=== PATIENT | male | born 2000 | race Native Hawaiian/Other Pacific Islander ===

== ENCOUNTER 2019-05-13 09:43 | Emergency (ER) | payer BC ==
[~2019-05-13] VITALS: Ht 167.6 cm; Wt 63.5 kg
[2019-05-13 09:55] VITALS: BP 158/97; TEMP 98.6
== END 2019-05-13 11:18 | disposition home or self-care (01) ==
LOC: ED 09:43
PROC: 2W3MX1Z Immobilization of Left Lower Extremity using Splint (ICD-10-PCS; principal; 2019-05-13)
DX: S83.92XA Sprain of unspecified site of left knee, initial encounter (principal); W19.XXXA Unspecified fall, initial encounter; Y93.64 Activity, baseball
CPT/HCPCS: 96372; 99283; J1885

== ENCOUNTER 2020-12-25 09:51 | Outpatient (CLI) | payer BC | END 2020-12-25 19:30 | disposition home or self-care (01) | LOC: RAD 09:51 | PROVIDERS: ATTEND Nurse Practitioner Family | DX: R94.31 Abnormal electrocardiogram [ECG] [EKG] (principal) ==

== ENCOUNTER 2021-01-02 10:56 | Outpatient (CLI) | payer BC | END 2021-01-02 19:56 | disposition home or self-care (01) | LOC: RESP 10:56 | PROVIDERS: ATTEND Nurse Practitioner Family | DX: R94.31 Abnormal electrocardiogram [ECG] [EKG] (principal) | CPT/HCPCS: 93225 ==

== ENCOUNTER 2021-07-19 21:20 | Observation (INO) | payer BC ==
[~2021-07-19] VITALS: Ht 182.9 cm; Wt 76.5 kg
[2021-07-19 21:25] VITALS: BP 160/97; TEMP 97.7
[2021-07-19 22:09] LABS: PLATELET COUNT 220 K/uL (142-355)
[2021-07-19 22:17] LABS: POTASSIUM 3.7 mmol/L (3.6-5.2); SODIUM 136 mmol/L (136-145)
[2021-07-19 22:30] VITALS: BP 143/90
[2021-07-19 22:32] LABS: PARTIAL THROMBOPLASTIN TIME 22.3 SECONDS (24.5-33.6)
[2021-07-19 23:00] VITALS: BP 136/91
[2021-07-19 23:30] VITALS: BP 139/94
[2021-07-20] VITALS: BP 141/94
[2021-07-20 01:03] VITALS: BP 155/97; TEMP 97.7; Ht 182.9 cm; Wt 76.5 kg
[2021-07-20 04:00] VITALS: BP 119/75; TEMP 97.7
[2021-07-20 08:00] VITALS: BP 134/74; TEMP 97.6
[2021-07-20 12:00] VITALS: BP 133/94; TEMP 98.1
== END 2021-07-20 15:40 | disposition home or self-care (01) ==
LOC: ED 21:20 → MED/SURG 23:00
PROVIDERS: ADMIT Hospitalist; ATTEND Internal Medicine
DX: R55 Syncope and collapse (principal); R07.89 Other chest pain; R47.81 Slurred speech
CPT/HCPCS: 36415; 80053; 80307; 80320; 81000; 82550; 83880; 84484; 85027; 85379; 85610; 85730; 87635; 93005; 96360; 96361; 96372; 96374; 96375; 99220; 99284; G0378; J1650; J1885; J2270; J2405; J3490; Q9963; U0003

== ENCOUNTER 2022-01-21 11:15 | Emergency (ER) | payer BC ==
[~2022-01-21] VITALS: Ht 185.4 cm; Wt 68.0 kg
[2022-01-21 11:18] VITALS: BP 175/98; TEMP 99.1
== END 2022-01-21 12:47 | disposition home or self-care (01) ==
LOC: ED 11:15
DX: S93.492A Sprain of other ligament of left ankle, initial encounter (principal); S90.512A Abrasion, left ankle, initial encounter; V86.63XA Passenger of dune buggy injured in nontraffic accident, initial encounter; Y92.89 Other specified places as the place of occurrence of the external cause
CPT/HCPCS: 90471; 90472; 90715; 96372; 99283; J0690; J1885